=== PATIENT | male | born 1975 | race Caucasian/White ===

== ENCOUNTER 2025-03-15 13:16 | Emergency (ER) | payer OTHER ==
[~2025-03-15] VITALS: Ht 180.3 cm; Wt 122.4 kg
[2025-03-15 13:21] VITALS: O2SAT 98
[2025-03-15 13:55] VITALS: BP 182/98; PULSE 72; RESP 18; TEMP 36.6; O2SAT 99
[2025-03-15 14:49] LABS: CHLORIDE 103 mEq/L (98-107); SODIUM 139 mEq/L (136-145)
[2025-03-15 14:50] LABS: CARBON DIOXIDE 31 mEq/L (21-32)
[2025-03-15 14:51] LABS: CALCIUM 8.9 mg/dL (8.7-10.4)
[2025-03-15 14:55] LABS: CREATININE 0.8 mg/dL (0.6-1.3); GLUCOSE 129 mg/dL (70-105); UREA NITROGEN BLOOD 13 mg/dL (9-23)
[2025-03-15 14:58] LABS: TROPONIN I HIGH SENSITIVITY 20 ng/L (3.0-53)
[2025-03-15 14:59] LABS: BASOPHILS % 1.2 % (0.0-2.0); DIFFERENTIAL COMMENT 0; EOSINOPHILS % 0.8 % (0.0-5.0); HEMATOCRIT. 42.2 % (42.0-52.0); HEMOGLOBIN. 15.2 g/dL (14.0-18.0); LYMPHOCYTES % 12.3 % (20.0-50.0); MEAN CORPUSCULAR HEMOGLOBIN 28.9 pg (28.0-32.0); MEAN CORPUSCULAR VOLUME 80.1 fL (80.0-94.0); MEAN PLATELET VOLUME 8.5 fl (7.4-10.4); MONOCYTES % 3.3 % (2.0-8.0); NEUTROPHILS % 82.4 % (40.0-76.0); PLATELET 308 x1000/uL (130-400); RED BLOOD CELL COUNT 5.26 mill/uL (4.7-6.1); WHITE BLOOD COUNT 9.5 x1000/uL (4.5-11.0)
[2025-03-15 15:45] LABS: POTASSIUM 2.7 mEq/L (3.5-5.1)
[2025-03-15] MEDS: POTASSIUM CHLORIDE 20MEQ TABLET SR PO ONE (16:38)
[2025-03-15] MEDS ORDERED: KCL 10MEQ/50ML PREMIX 50 ML IV SCH (16:45)
[2025-03-15] MEDS: KCL 10MEQ/50ML PREMIX 50 ML IV SCH (17:28)
== END 2025-03-15 20:26 | disposition home or self-care (01) ==
LOC: ER 13:16
DX: S09.90XA Unspecified injury of head, initial encounter (principal); I10 Essential (primary) hypertension; E87.6 Hypokalemia; Z98.890 Other specified postprocedural states; W01.0XXA Fall on same level from slipping, tripping and stumbling without subsequent striking against object, initial encounter; Y93.89 Activity, other specified; Y92.89 Other specified places as the place of occurrence of the external cause; Y99.8 Other external cause status
CPT/HCPCS: 80048; 85025; 84484; 36415; 96365; 96366; 99284; J3480; Z7610 ×4; A4606